=== PATIENT | male | born 1980 | race Caucasian/White ===

== ENCOUNTER 2016-12-02 01:05 | Emergency (ER) | payer SELFPAY ==
[~2016-12-02] VITALS: Ht 172.7 cm; Wt 78.0 kg
[2016-12-02 01:06] VITALS: BP 147/97; PULSE 63; RESP 16; TEMP 97.7; O2SAT 98
[2016-12-02] MEDS ORDERED: SODIUM CHLORIDE 0.9% FLUSH 10 ML FLUSH IV FLUSH PRN (02:00)
[2016-12-02 02:13] LABS: AUTOMATED NEUTROPHIL # 9.8 TH/MM3 (1.8-7.7); BASOPHIL # 0.1 TH/MM3 (0-0.2); BASOPHIL % 0.4 % (0.0-2.0); EOSINOPHIL # 0.1 TH/MM3 (0-0.4); EOSINOPHIL % 1.2 % (0.0-4.0); HEMATOCRIT 43.1 % (39.0-51.0); HEMO FLAGS DIFF FINAL; LYMPH % 12.4 % (9.0-44.0); LYMPHOCYTE # 1.5 TH/MM3 (1.0-4.8); MEAN CELL VOLUME 85.4 FL (80.0-100.0); MEAN CORPUSCULAR HEMOGLOBIN 29.6 PG (27.0-34.0); MEAN CORPUSCULAR HGB CONC 34.6 % (32.0-36.0); MONO % 5.7 % (0.0-8.0); NEUT % 80.3 % (16.0-70.0); PLATELET COUNT 273 TH/MM3 (150-450); RED BLOOD COUNT 5.05 MIL/MM3 (4.50-5.90); WHITE BLOOD COUNT 12.2 TH/MM3 (4.0-11.0)
[2016-12-02] MEDS ORDERED: IOHEXOL 350 MG/ML 10 ML VIAL (for RAD DIAG) IV ONE (02:22)
--- NOTE | 2016-12-02 02:36 | RADRPT ---
EXAM DATE/TIME: 12/02/2016 02:17 [facility] COMPARISON: No previous studies available for comparison. INDICATIONS : Abdomen pain. IV CONTRAST: 100 cc Omnipaque 350 (iohexol) IV ORAL CONTRAST: No oral contrast ingested. RADIATION DOSE: 6.64 CTDIvol (mGy) MEDICAL HISTORY : None SURGICAL HISTORY : None. ENCOUNTER: Initial ACUITY: 3 days PAIN SCALE: 5/10 LOCATION: abdomen TECHNIQUE: Volumetric scanning of the abdomen and pelvis was performed. Using automated exposure control and ad justment of the mA and/or kV according to patient size, radiation dose was kept as low as reasonably achievable to obtain optimal diagnostic quality images. FINDINGS: CT Abdomen: The liver, spleen, pancreas, adrenals are unremarkable. There is no evidence for any appr eciable pathological adenopathy, free fluid, or bowel obstruction. The axis of the kidneys are rotate d, however there is no hydronephrosis or mass. Tiny subcentimeter left renal cyst is seen. CT pelvis: There is no evidence for mass, abscess formation, or any significant adenopathy within the pelvis. The prostate gland is inhomogeneous and measures 3.5 x 3.8 cm in AP and transverse diameters and nonspecific. There is moderate amount of stool throughout the colon. CONCLUSION: Essentially unremarkable study. Tanya Ramires MD on December 02, 2016 at 2:31 Board Certified Radiologist. This report was verified electronically.
[2016-12-02 02:37] LABS: ALT (GPT) 25 U/L (12-78); ANION GAP 7 MEQ/L (5-15); AST (GOT) 18 U/L (15-37); BICARBONATE 30.2 MEQ/L (21.0-32.0); CHLORIDE 105 MEQ/L (98-107); GLOMERULAR FILTRATION RATE 99 ML/MIN (>89); POTASSIUM 3.9 MEQ/L (3.5-5.1); SODIUM (NA) 142 MEQ/L (136-145)
[2016-12-02 02:39] LABS: ALKALINE PHOSPHATASE 97 U/L (45-117); BLOOD UREA NITROGEN 12 MG/DL (7-18); TOTAL BILIRUBIN ADULT 0.4 MG/DL (0.2-1.0)
--- NOTE | 2016-12-02 03:18 | PD ---
HPI . Abdominal pain Chief Complaint: Abdominal Pain Time Seen by Provider: 01:46 Travel History International Travel<30 days: No Contact w/Intl Traveler<30days: No Traveled to known affect area: No History of Present Illness HPI Patient presents complaining with abdominal pain. He states that he's been having it for about 3 months. He states that he just got out [facility] yesterday and that they did not do anything for his abdominal pain while he was in [facility]. He states that he had some blood work done but that the etiology of the abdominal pain was not discovered. He reports that his abdominal pain is exacerbated by eating. It seems to be worse at nighttime. It is occasionally associated with emesis. He states that his pain was originally a 9/10 but has spontaneously improved to a 4/10. He is unsure as to what might be a relieving factor. He does not have any other associated symptoms such as fever or urinary tract symptoms. His appetite has been good. PFSH Past Medical History Medical History: Denies Significant Hx Diminished Hearing: No Tetanus Vaccination: Unknown Past Surgical History Surgical History: No Previous Surgery Social History Alcohol Use: Yes (occ) Tobacco Use: Yes Substance Use: No (hx of IV drugs) Allergies-Medications (Allergen,Severity, Reaction): Coded Allergies: No Known Allergies (Unverified , 12/02/16) Reported Meds & Prescriptions Reported Meds & Active Scripts Active No Active Prescriptions or Reported Medications Review of Systems Except as stated in HPI: all other systems reviewed are Neg General / Constitutional: No: Fever, Chills Gastrointestinal: Positive: Nausea, Vomiting, Abdominal Pain, No: Diarrhea, Changes in Bowel Habits, Loss of Appetite Genitourinary: No: Urgency, Frequency, Dysuria Physical Exam Narrative GENERAL: This is a healthy-appearing man in no acute distress. SKIN: Warm and dry. HEAD: Atraumatic. Normocephalic. EYES: Pupils equal and round. ENT: No nasal bleeding or discharge. Mucous membranes pink and moist. NECK: Trachea midline. Neck is supple. CARDIOVASCULAR: Regular rate and rhythm. Heart sounds are normal. RESPIRATORY: No accessory muscle use. Lungs are clear with full air movement throughout. GASTROINTESTINAL: Abdomen soft. He does have some upper abdominal tenderness. Bowel sounds are positive. Nondistended. MUSCULOSKELETAL: No obvious deformities. No edema. NEUROLOGICAL: Awake and alert. No obvious cranial nerve deficits. Motor grossly within normal limits. Normal speech. PSYCHIATRIC: Appropriate mood and affect; insight and judgment normal. Data Data Last Documented VS Vital Signs Date Time Temp Pulse Resp B/P Pulse Ox O2 Delivery O2 Flow Rate FiO2 12/02/16 01:06 97.7 63 16 147/97 98 Room Air Orders Complete Blood Count With Diff (12/02/16 01:46) Comprehensive Metabolic Panel (12/02/16 01:46) Lipase (12/02/16 01:46) Ct Abd/Pel W Iv Contrast(Rout) (12/02/16 01:46) Iv Access Insert/Monitor (12/02/16 01:46) Sodium Chloride 0.9% Flush (Ns Flush) (12/02/16 02:00) Iohexol 350 Inj (Omnipaque 350 Inj) (12/02/16 02:22) Labs Laboratory Tests Test 12/02/16 01:55 White Blood Count 12.2 TH/MM3 Red Blood Count 5.05 MIL/MM3 Hemoglobin 14.9 GM/DL Hematocrit 43.1 % Mean Corpuscular Volume 85.4 FL Mean Corpuscular Hemoglobin 29.6 PG Mean Corpuscular Hemoglobin 34.6 % Concent Red Cell Distribution Width 13.0 % Platelet Count 273 TH/MM3 Mean Platelet Volume 8.0 FL Neutrophils (%) (Auto) 80.3 % Lymphocytes (%) (Auto) 12.4 % Monocytes (%) (Auto) 5.7 % Eosinophils (%) (Auto) 1.2 % Basophils (%) (Auto) 0.4 % Neutrophils # (Auto) 9.8 TH/MM3 Lymphocytes # (Auto) 1.5 TH/MM3 Monocytes # (Auto) 0.7 TH/MM3 Eosinophils # (Auto) 0.1 TH/MM3 Basophils # (Auto) 0.1 TH/MM3 CBC Comment DIFF FINAL Differential Comment Sodium Level 142 MEQ/L Potassium Level 3.9 MEQ/L Chloride Level 105 MEQ/L Carbon Dioxide Level 30.2 MEQ/L Anion Gap 7 MEQ/L Blood Urea Nitrogen 12 MG/DL Creatinine 0.87 MG/DL Estimat Glomerular Filtration 99 ML/MIN Rate Random Glucose 103 MG/DL Calcium Level 8.4 MG/DL Total Bilirubin 0.4 MG/DL Aspartate Amino Transf 18 U/L (AST/SGOT) Alanine Aminotransferase 25 U/L (ALT/SGPT) Alkaline Phosphatase 97 U/L Total Protein 7.2 GM/DL Albumin 3.7 GM/DL Lipase 102 U/L [facility] Medical Decision Making Medical Screen Exam Complete: Yes Emergency Medical Condition: Yes Differential Diagnosis Differential diagnosis of abdominal pain includes but is not limited to gastritis, pancreatitis, hepatitis, gastroenteritis, gallbladder disease, constipation, urinary retention, UTI, peptic ulcer disease, diverticulitis or appendicitis Narrative Course Patient presents complaining with a 3 month history of upper abdominal pain. CBC & BMP Diagram 12/02/16 01:55 Liver function studies are normal. Lipase is also normal. Last Impressions Abdomen/Pelvis CT 12/02/16 0146 Signed Impressions: Service Date/Time: Sunday, December 02, 2016 02:17 - CONCLUSION: Essentially unremarkable study. Tanya Ramires MD No acute etiology for his abdominal pain was found. This patient is stable for discharge and further evaluation as an outpatient. Diagnosis Primary Impression: Abdominal pain Qualified Code: R10.10 - Pain of upper abdomen Referrals: [facility] Primary Care Physician Patient Instructions: Abdominal Pain (ED), General Instructions Scripts No Active Prescriptions or Reported Meds Disposition: 01 DISCHARGE HOME Condition: Stable Amy Ruiz MD Dec 02, 2016 03:18
== END 2016-12-02 03:49 | disposition home or self-care (01) ==
LOC: NEPC 01:05
DX: R10.10 Upper abdominal pain, unspecified (principal)
CPT/HCPCS: 74177; 80053; 83690; 85025; 99285; Q9967

== ENCOUNTER 2017-07-25 15:38 | Emergency (ER) | payer SELFPAY ==
[~2017-07-25] VITALS: Ht 172.7 cm; Wt 65.9 kg
[~2017-07-25 15:38] MED LIST: NALO1SPR NASAL
[2017-07-25] MEDS ORDERED: IOHEXOL 350 MG/ML 10 ML VIAL (for RAD DIAG) IVCONTRAST ONE (15:39)
[2017-07-25 15:56] VITALS: BP 116/65; PULSE 59; RESP 18; TEMP 98.2; O2SAT 100
[2017-07-25 16:18] VITALS: BP 118/72; PULSE 60; RESP 19; TEMP 98.5; O2SAT 99
[2017-07-25] MEDS ORDERED: SODIUM CHLORIDE 0.9% FLUSH 10 ML FLUSH IVF PRN (16:45)
--- NOTE | 2017-07-25 16:54 | PD ---
HPI Chief Complaint: Chest Pain Time Seen by Provider: 16:25 Travel History International Travel<30 days: No Contact w/Intl Traveler<30days: No Traveled to known affect area: No History of Present Illness HPI 36 year woman who presents to the emergency department complaint of chest pain. He is a history of gallstones. He also has a history of active IV drug use, last use this morning, opiates and cocaine. States the chest pain started last night. It's worse with deep breathing, talking. Also worse with certain arm movements. He has some shortness of breath with it. He denies any fevers chills night sweats or other infectious symptoms. No leg swelling. No history of trauma or new heavy lifting. He does have a slight amount of cough. History Past Medical History Narrative Medical Gallstones IV drug use Past Surgical History Surgical History: No Previous Surgery Social History Alcohol Use: No Tobacco Use: Yes (1 ppd) Allergies-Medications (Allergen,Severity, Reaction): Coded Allergies: No Known Allergies (Unverified Allergy, Unknown, 07/25/17) Reported Meds & Prescriptions Reported Meds & Active Scripts Active Narcan Nasal Champion (Naloxone HCl) 4 Mg/Act Champion 4 Mg NASAL ONCE PRN Contents of 1 nasal spray as a single dose; may repeat every 2 to 3 minutes in alternating nostrils until medical assistance becomes available. Review of Systems Except as stated in HPI: all other systems reviewed are Neg Physical Exam Narrative GENERAL: Well-appearing 36 old man, no acute distress. SKIN: Focused skin assessment warm/dry. HEAD: Atraumatic. Normocephalic. EYES: Pupils equal and round. No scleral icterus. No injection or drainage. ENT: No nasal bleeding or discharge. Mucous membranes pink and moist. NECK: Trachea midline. No JVD. CARDIOVASCULAR: Regular rate and rhythm. No murmur appreciated. RESPIRATORY: No accessory muscle use. Clear to auscultation. Breath sounds equal bilaterally. GASTROINTESTINAL: Abdomen soft, non-tender, nondistended. Hepatic and splenic margins not palpable. MUSCULOSKELETAL: No obvious deformities. No clubbing. No cyanosis. No edema. NEUROLOGICAL: Awake and alert. No obvious cranial nerve deficits. Motor grossly within normal limits. Normal speech. PSYCHIATRIC: Appropriate mood and affect; insight and judgment normal. Data Data Last Documented VS Vital Signs Date Time Temp Pulse Resp B/P (MAP) Pulse Ox O2 Delivery O2 Flow Rate FiO2 07/25/17 19:13 55 16 129/71 (90) 98 Room Air 07/25/17 16:18 98.5 Orders Orders Electrocardiogram (07/25/17 16:43) Complete Blood Count With Diff (07/25/17 16:43) Comprehensive Metabolic Panel (07/25/17 16:43) D-Dimer (07/25/17 16:43) Magnesium (Mg) (07/25/17 16:43) Prothrombin Time / Inr (Pt) (07/25/17 16:43) Act Partial Throm Time (Ptt) (07/25/17 16:43) Troponin I (07/25/17 16:43) Lipase (07/25/17 16:43) Chest, Single Ap (07/25/17 16:43) Ecg Monitoring (07/25/17 16:43) Iv Access Insert/Monitor (07/25/17 16:43) Oximetry (07/25/17 16:43) Oxygen Administration (07/25/17 16:43) Sodium Chloride 0.9% Flush (Ns Flush) (07/25/17 16:45) Ct Pulmonary Angiogram (07/25/17 ) Iohexol 350 Inj (Omnipaque 350 Inj) (07/25/17 15:39) Labs Laboratory Tests Test 07/25/17 16:16 White Blood Count 9.6 TH/MM3 Red Blood Count 4.88 MIL/MM3 Hemoglobin 14.5 GM/DL Hematocrit 42.2 % Mean Corpuscular Volume 86.5 FL Mean Corpuscular Hemoglobin 29.7 PG Mean Corpuscular Hemoglobin Concent 34.4 % Red Cell Distribution Width 13.5 % Platelet Count 267 TH/MM3 Mean Platelet Volume 8.5 FL Neutrophils (%) (Auto) 68.0 % Lymphocytes (%) (Auto) 20.0 % Monocytes (%) (Auto) 9.1 % Eosinophils (%) (Auto) 2.1 % Basophils (%) (Auto) 0.8 % Neutrophils # (Auto) 6.5 TH/MM3 Lymphocytes # (Auto) 1.9 TH/MM3 Monocytes # (Auto) 0.9 TH/MM3 Eosinophils # (Auto) 0.2 TH/MM3 Basophils # (Auto) 0.1 TH/MM3 CBC Comment DIFF FINAL Differential Comment Prothrombin Time 11.9 SEC Prothromb Time International Ratio 1.2 RATIO Activated Partial Thromboplast Time 25.6 SEC D-Dimer Quantitative (PE/DVT) 0.83 MG/L FEU Blood Urea Nitrogen 10 MG/DL Creatinine 0.85 MG/DL Random Glucose 103 MG/DL Total Protein 6.8 GM/DL Albumin 3.3 GM/DL Calcium Level 8.8 MG/DL Magnesium Level 2.0 MG/DL Alkaline Phosphatase 87 U/L Aspartate Amino Transf (AST/SGOT) 22 U/L Alanine Aminotransferase (ALT/SGPT) 26 U/L Total Bilirubin 0.6 MG/DL Sodium Level 137 MEQ/L Potassium Level 3.3 MEQ/L Chloride Level 100 MEQ/L Carbon Dioxide Level 28.6 MEQ/L Anion Gap 8 MEQ/L Estimat Glomerular Filtration Rate 102 ML/MIN Troponin I LESS THAN 0.02 NG/ML Lipase 89 U/L [facility] Medical Decision Making Medical Screen Exam Complete: Yes Emergency Medical Condition: Yes Interpretation(s) My review of EKG: Sinus bradycardia rate of 57, normal axis, normal intervals, no acute ischemia. LABS: CBC is unremarkable. CMP is unremarkable. Troponin negative. Lipase is normal. D-dimer 0.83 Chest x-ray: No acute cardiopulmonary disease. CT negatibve for PE, small R pleural effusion, atelectasis Differential Diagnosis ACS, PE, septic emboli, cocaine chest pain, cholecystitis, biliary colic, chest wall pain, costochondritis, other Narrative Course Medical decision making INITIAL: This a 36 human presents emergency room report it right sided chest pain, worse with moving the arm, suggestive muscular skeletal or chest wall pain. PE or septic pulmonary emboli also possible but seems less likely. No infectious symptoms to suggest underlying endocarditis. Looks well. Did use cocaine this morning. EKG is non-ischemic. We'll check labs, x-ray, reassess. Diagnosis Primary Impression: Pleurisy with effusion Additional Instructions: Take naprosyn as needed for pain. Return to the ER for any trouble breathing, worsening pain, or any other new or worsening symptoms. Med/Other Pt SpecificInfo: Prescription(s) given Scripts Naproxen (Naproxen) 500 Mg Tab 500 MG PO BID, #20 TAB 0 Refills Prov: Tamir Martinez MD 07/25/17 Disposition: DISCHARGE HOME Condition: Stable Tamir Martinez C. MD Jul 25, 2017 16:54
--- NOTE | 2017-07-25 17:26 | RADRPT ---
EXAM DATE/TIME: 07/25/2017 16:56 [facility] COMPARISON: No previous studies available for comparison. INDICATIONS : Chest pain. MEDICAL HISTORY : None. SURGICAL HISTORY : None. ENCOUNTER: Initial ACUITY: 2 days PAIN SCORE: 10 LOCATION: middle chest. FINDINGS: A single view of the chest demonstrates the lungs to be symmetrically aerated without evidence of mas s, infiltrate or effusion. The cardiomediastinal contours are unremarkable. Osseous structures are intact with a mild levoscoliosis of the dorsal spine. CONCLUSION: No acute cardiopulmonary process. Isaiah Porter MD on July 25, 2017 at 17:23 Board Certified Radiologist. This report was verified electronically.
[2017-07-25 17:27] LABS: AUTOMATED NEUTROPHIL # 6.5 TH/MM3 (1.8-7.7); BASOPHIL # 0.1 TH/MM3 (0-0.2); BASOPHIL % 0.8 % (0.0-2.0); EOSINOPHIL # 0.2 TH/MM3 (0-0.4); EOSINOPHIL % 2.1 % (0.0-4.0); HEMATOCRIT 42.2 % (39.0-51.0); HEMOGLOBIN 14.5 GM/DL (13.0-17.0); LYMPHOCYTE # 1.9 TH/MM3 (1.0-4.8); MEAN CELL VOLUME 86.5 FL (80.0-100.0); MEAN CORPUSCULAR HEMOGLOBIN 29.7 PG (27.0-34.0); MEAN CORPUSCULAR HGB CONC 34.4 % (32.0-36.0); MEAN PLATELET VOLUME 8.5 FL (7.0-11.0); MONO % 9.1 % (0.0-8.0); MONOCYTE # 0.9 TH/MM3 (0-0.9); PLATELET COUNT 267 TH/MM3 (150-450); RED BLOOD COUNT 4.88 MIL/MM3 (4.50-5.90); RED CELL DISTRIBUTION WIDTH 13.5 % (11.6-17.2); WHITE BLOOD COUNT 9.6 TH/MM3 (4.0-11.0)
[2017-07-25 17:49] LABS: INTERNATIONAL NORMALIZED RATIO 1.2 RATIO; PROTHROMBIN TIME - PATIENT 11.9 SEC (9.8-11.6)
[2017-07-25 17:56] LABS: ALBUMIN 3.3 GM/DL (3.4-5.0); AST (GOT) 22 U/L (15-37); BICARBONATE 28.6 MEQ/L (21.0-32.0); BLOOD UREA NITROGEN 10 MG/DL (7-18); CALCIUM 8.8 MG/DL (8.5-10.1); CHLORIDE 100 MEQ/L (98-107); CREATININE 0.85 MG/DL (0.60-1.30); GLOMERULAR FILTRATION RATE 102 ML/MIN (>89); GLUCOSE,RANDOM 103 MG/DL (74-106); LIPASE 89 U/L (73-393); SODIUM (NA) 137 MEQ/L (136-145)
[2017-07-25 18:01] LABS: ALKALINE PHOSPHATASE 87 U/L (45-117); ALT (GPT) 26 U/L (12-78); D-DIMER 0.83 MG/L FEU (0.00-0.50); TOTAL BILIRUBIN ADULT 0.6 MG/DL (0.2-1.0); TOTAL PROTEIN 6.8 GM/DL (6.4-8.2); TROPONIN I LESS THAN 0.02 NG/ML (0.02-0.05)
[2017-07-25 19:13] VITALS: BP 129/71; PULSE 55; RESP 16; O2SAT 98
--- NOTE | 2017-07-25 19:18 | RADRPT ---
EXAM DATE/TIME: 07/25/2017 18:38 [facility] COMPARISON: No previous studies available for comparison. INDICATIONS : Patient complains of right side chest pain. IV CONTRAST: cc Omnipaque 350 (iohexol) IV RADIATION DOSE: CTDIvol (mGy) MEDICAL HISTORY : gallstones SURGICAL HISTORY : None. ENCOUNTER: Initial ACUITY: 1 day PAIN SCALE: 3/10 LOCATION: Right chest TECHNIQUE: Volumetric scanning of the chest was performed using a pulmonary embolism protocol MIP images were re constructed. Using automated exposure control and adjustment of the mA and/or kV according to patien t size, radiation dose was kept as low as reasonably achievable to obtain optimal diagnostic quality images. DICOM format image data is available electronically for review and comparison. Follow-up recommendations for detected pulmonary nodules are based at a minimum on nodule size and pa tient risk factors according to Fleischner Society Guidelines. FINDINGS: PULMONARY ARTERIES: 2 LUNGS: There is no consolidation or pneumothorax . No concerning pulmonary nodule is visualized. PLEURAE: Small right pleural effusion present of unknown etiology. MEDIASTINUM: There is good visualization of the great vessels of the middle mediastinum. No evidence of mediastin al or hilar adenopathy/mass. MUSCULOSKELETAL: Within normal limits for patient age. MISCELLANEOUS: The visualized upper abdominal organs demonstrate no acute abnormality. CONCLUSION: 1. Negative for pulmonary embolus. Mucoid debris in the trachea. 2. Small right pleural effusion and dependent atelectasis. Prosper Newton MD on July 25, 2017 at 19:14 Board Certified Radiologist. This report was verified electronically.
[2017-07-25] MEDS ORDERED: NAPR500T2 PO (19:27)
[2017-07-25] MEDS ORDERED: KETOROLAC TROMETHAMINE 30 MG/ML (IVP) VIAL IVP ONE (19:45)
--- NOTE | 2017-07-26 00:40 | EKG ---
Date Performed: 07/25/2017 Time Performed: 16:19:06 PTAGE: 36 years EKG: SINUS BRADYCARDIA BORDERLINE ECG NO PREVIOUS TRACING DOCTOR: Waldo Herron Interpretating Date/Time 07/26/2017 00:39:33
== END 2017-07-25 19:50 | disposition home or self-care (01) ==
LOC: NEPE 15:38
DX: J90 Pleural effusion, not elsewhere classified (principal); R07.9 Chest pain, unspecified; R06.02 Shortness of breath; R05 Cough; J98.11 Atelectasis; R00.1 Bradycardia, unspecified; F17.200 Nicotine dependence, unspecified, uncomplicated
CPT/HCPCS: 71045; 71275; 80053; 83690; 83735; 84484; 85025; 85379; 85610; 85730; 93005; 99285; Q9967